=== PATIENT | male | born 2000 ===

== ENCOUNTER 2025-03-15 08:07 | Outpatient (CLI) | payer BC, SELFPAY ==
--- NOTE | ~2025-03-15 | US_ITS ---
Limited Abdominal Sonogram: Real-time sonographic imaging of the right upper quadrant was performed. Clinical History: Abnormal liver enzymes Findings: The liver appears echogenic, with no evidence of mass lesion or bile duct dilatation. Main portal vein demonstrates normal direction of flow. The gallbladder is well distended, and appears no rmal with no evidence of gallstone or wall thickening. The common bile duct measures 3 mm. The visua lized pancreas, aorta, and IVC are unremarkable. Impression: Diffuse fatty infiltration of liver. Reviewed, dictated and finalized at location M. Impression: Diffuse fatty infiltration of liver.
== END 2025-03-15 08:08 | disposition home or self-care (01) ==
PROVIDERS: PCP Family Medicine; Visit Provider Student in an Organized Health Care Education/Training Program
DX: K76.0 Fatty (change of) liver, not elsewhere classified (principal); R74.01 Elevation of levels of liver transaminase levels
CPT/HCPCS: 76705

== ENCOUNTER 2025-06-18 09:42 | Outpatient (CLI) | payer BC, SELFPAY ==
--- NOTE | ~2025-06-18 | US_ITS ---
EXAMINATION: US abdomen limited DATE: 06/18/2025 11:24 INDICATION: Abnormal chest TECHNIQUE: Multiple grayscale and Doppler ultrasound images of the abdomen were obtained. COMPARISON: None FINDINGS: The gallbladder appears normal with no cholelithiasis or gross sonographic evidence of acute cholecystitis. Common bile duct measures 5 mm The pancreas is incompletely seen. Echotexture of the liver appears increased. The right kidney appears within normal limits. IMPRESSION: 1. No cholelithiasis or sonographic evidence of acute cholecystitis. 2. Incomplete visualization of the pancreas. 3. Fatty liver changes. Reviewed, dictated and finalized at location A. [employer]
== END 2025-06-18 09:43 | disposition home or self-care (01) ==
PROVIDERS: PCP Student in an Organized Health Care Education/Training Program; Visit Provider Student in an Organized Health Care Education/Training Program
DX: R79.89 Other specified abnormal findings of blood chemistry (principal); K76.0 Fatty (change of) liver, not elsewhere classified
CPT/HCPCS: 76705